=== PATIENT | male | born 1990 | race Caucasian/White ===

== ENCOUNTER 2023-05-09 18:27 | Observation (INO) | payer BC, OTHER ==
[~2023-05-09] VITALS: Ht 170.2 cm; Wt 100.9 kg
[2023-05-09] MEDS ORDERED: EXCETAB22 PO (18:50)
[2023-05-09] MEDS ORDERED: GUAN1TAB49 (18:50)
[2023-05-09 21:48] LABS: BASO % 0.2 % (0.0-1.0); EOS % 0.2 % (0.0-3.0); HEMATOCRIT 47.2 % (42.0-52.0); HEMOGLOBIN 16.3 g/dl (13.5-17.5); LYMPH # 2.6 10^3/uL (1.5-5.0); LYMPH % 15.1 % (24.0-44.0); MEAN CORPUSCULAR HEMOGLOBIN 28.8 pg (27.0-33.0); MEAN CORPUSCULAR HGB CONC 34.5 g/dl (32.0-36.5); MEAN CORPUSCULAR VOLUME 83.5 fl (80.0-96.0); MONO # 1.8 10^3/uL (0.0-0.8); MONO % 10.1 % (2.0-8.0); NEUTROPHILS # 12.9 10^3/uL (1.5-8.5); PLATELET COUNT, AUTOMATED 238 10^3/uL (150-450); RED BLOOD COUNT 5.65 10^6/uL (4.30-6.10); WHITE BLOOD COUNT 17.5 10^3/uL (4.0-10.0)
[2023-05-09 22:20] LABS: LIPASE 33 U/L (12-53)
[2023-05-09 22:22] LABS: ALBUMIN 3.5 G/DL (3.2-5.2); ALKALINE PHOSPHATASE 76 U/L (46-116); ALT/SGPT 35 U/L (7.0-40); AST/SGOT 20 U/L (<34); BILIRUBIN,DIRECT 0.3 MG/DL (<0.4); BILIRUBIN,TOTAL 0.8 MG/DL (0.3-1.2); BLOOD UREA NITROGEN 11 MG/DL (9-23); CALCIUM LEVEL 8.1 MG/DL (8.5-10.1); CARBON DIOXIDE LEVEL 29 MMOL/L (20-31); CHLORIDE LEVEL 105 MMOL/L (98-107); CREATININE FOR GFR 0.85 MG/DL (0.70-1.30); GLOMERULAR FILTRATION RATE > 60.0 (>60); GLUCOSE, FASTING 93 MG/DL (60-100); POTASSIUM SERUM 4.4 MMOL/L (3.5-5.1); SODIUM LEVEL 139 MMOL/L (136-145); TOTAL PROTEIN 7.2 G/DL (5.7-8.2)
[2023-05-09 23:49] LABS: ERYTHROCYTE SEDIMENTATION RATE 47 mm/hr (0-15)
[2023-05-10] MEDS: NS 1,000 ML IV ONE ×2 (00:05→10:42)
[2023-05-10] MEDS ORDERED: ISOVUE-370 76% 100ML VIAL As Ordered ONE (00:22)
[2023-05-10] MEDS: NS 1,000 ML IV SCH (01:45)
[2023-05-10] MEDS: PIPERACILLIN/TAZOBACTAM SOD 4.5 GM in D5W MINI-BAG PLUS 50 ML IV ONE (02:04)
[2023-05-10] MEDS: MORPHINE 2 MG/ML 1ML VIAL IV ONE (04:44)
[2023-05-10] MEDS ORDERED: EXCETAB32 PO (06:14)
[2023-05-10] MEDS ORDERED: GUAN1TAB16 PO (06:14)
[2023-05-10] MEDS ORDERED: HOME MED LIST COMPLETE! XX SCH (06:15)
[2023-05-10] MEDS ORDERED: VITA200032 PO (06:15)
[2023-05-10] MEDS ORDERED: PERCOCET 5MG/325MG TAB PO PRN (07:20)
[2023-05-10] MEDS ORDERED: RIZATRIPTAN BENZOATE 10 MG TAB PO PRN (07:20)
[2023-05-10 09:10] LABS: PERCENT SATURATION 7.3 % (19.7-50.0)
[2023-05-10 09:18] LABS: FERRITIN 96.7 NG/ML (10.5-307.3)
[2023-05-10] MEDS: PIPERACILLIN/TAZOBACTAM SOD 4.5 GM in D5W MINI-BAG PLUS 50 ML IV SCH (10:42)
[2023-05-10] MEDS: ACETAMINOPHEN TAB 650MG DOSE (2X325MG) PO PRN (10:58)
[2023-05-10] MEDS: LR 1,000 ML IV SCH (11:37)
[2023-05-10 18:40] VITALS: BP 131/86; TEMP 98.2; O2SAT 97
[2023-05-10 19:41] VITALS: BP 117/75; TEMP 99.3; O2SAT 96
[2023-05-10] MEDS: PERCOCET 5MG/325MG TAB PO PRN (19:47)
[2023-05-11 05:26] VITALS: BP 118/74; TEMP 97.9; O2SAT 97
[2023-05-11 06:36] LABS: BASO # 0.1 10^3/uL (0.0-0.2); BASO % 0.5 % (0.0-1.0); EOS # 0.1 10^3/uL (0.0-0.5); EOS % 0.9 % (0.0-3.0); HEMATOCRIT 46.4 % (42.0-52.0); HEMOGLOBIN 15.6 g/dl (13.5-17.5); LYMPH % 15.4 % (24.0-44.0); MEAN CORPUSCULAR HEMOGLOBIN 28.4 pg (27.0-33.0); MEAN CORPUSCULAR HGB CONC 33.6 g/dl (32.0-36.5); MEAN CORPUSCULAR VOLUME 84.5 fl (80.0-96.0); MONO # 1.1 10^3/uL (0.0-0.8); MONO % 8.5 % (2.0-8.0); NEUTROPHILS # 9.8 10^3/uL (1.5-8.5); NEUTROPHILS % 74.2 % (36.0-66.0); PLATELET COUNT, AUTOMATED 244 10^3/uL (150-450); RED BLOOD COUNT 5.49 10^6/uL (4.30-6.10); WHITE BLOOD COUNT 13.2 10^3/uL (4.0-10.0)
[2023-05-11 07:05] LABS: BLOOD UREA NITROGEN 9 MG/DL (9-23); CALCIUM LEVEL 8.5 MG/DL (8.5-10.1); CARBON DIOXIDE LEVEL 31 MMOL/L (20-31); CHLORIDE LEVEL 103 MMOL/L (98-107); CREATININE FOR GFR 0.96 MG/DL (0.70-1.30); GLOMERULAR FILTRATION RATE > 60.0 (>60); GLUCOSE, FASTING 86 MG/DL (60-100); MAGNESIUM LEVEL 2.1 MG/DL (1.8-2.4); POTASSIUM SERUM 4.1 MMOL/L (3.5-5.1); SODIUM LEVEL 139 MMOL/L (136-145)
[2023-05-11] MEDS ORDERED: RIZA10TA64 PO (13:05)
[2023-05-11] MEDS ORDERED: BACI1CAP PO (13:05)
[2023-05-11] MEDS ORDERED: METR-265 PO (13:05)
[2023-05-11] MEDS ORDERED: LEVO1TAB40 PO (13:05)
[2023-05-11 14:00] VITALS: BP 134/73; TEMP 98.4; O2SAT 96
[2023-05-11 21:41] VITALS: BP 124/70; TEMP 98.1; O2SAT 96
[2023-05-12 06:00] VITALS: BP 116/70; TEMP 97.2; O2SAT 97
[2023-05-12 07:17] LABS: BASO # 0.1 10^3/uL (0.0-0.2); BASO % 0.5 % (0.0-1.0); EOS # 0.2 10^3/uL (0.0-0.5); EOS % 1.6 % (0.0-3.0); HEMATOCRIT 42.7 % (42.0-52.0); LYMPH % 15.6 % (24.0-44.0); MEAN CORPUSCULAR HEMOGLOBIN 29.4 pg (27.0-33.0); MEAN CORPUSCULAR HGB CONC 35.1 g/dl (32.0-36.5); MEAN CORPUSCULAR VOLUME 83.6 fl (80.0-96.0); MONO # 1.1 10^3/uL (0.0-0.8); MONO % 8.3 % (2.0-8.0); NEUTROPHILS # 9.5 10^3/uL (1.5-8.5); NEUTROPHILS % 73.5 % (36.0-66.0); PLATELET COUNT, AUTOMATED 248 10^3/uL (150-450); RED BLOOD COUNT 5.11 10^6/uL (4.30-6.10)
[2023-05-12 07:54] LABS: BLOOD UREA NITROGEN 14 MG/DL (9-23); CALCIUM LEVEL 8.8 MG/DL (8.5-10.1); CARBON DIOXIDE LEVEL 31 MMOL/L (20-31); CHLORIDE LEVEL 104 MMOL/L (98-107); CREATININE FOR GFR 0.98 MG/DL (0.70-1.30); GLOMERULAR FILTRATION RATE > 60.0 (>60); GLUCOSE, FASTING 101 MG/DL (60-100); MAGNESIUM LEVEL 2.1 MG/DL (1.8-2.4); POTASSIUM SERUM 4.4 MMOL/L (3.5-5.1); SODIUM LEVEL 139 MMOL/L (136-145)
[2023-05-12 17:07] LABS: Chitobioside Carbohydrat (ACCA 94 units (0-90); Laminaribioside Carbohyd (ALCA 26 units (0-60); Mannobioside Carbohydrat (AMCA 19 units (0-100); Saccharomyces cerevisiae IgG A 55 units (0-50)
== END 2023-05-12 10:36 | disposition home or self-care (01) ==
LOC: M ED 18:27 → INTOOBSV 05-10 07:14 → M ED INP 05-10 07:14 → ENRESERV 05-10 16:26 → ENRESERVTM 05-10 18:10 → M MSPAV 05-10 18:39
PROVIDERS: ADMIT General Practice; ATTEND General Practice
DX: K57.20 Diverticulitis of large intestine with perforation and abscess without bleeding (principal); A08.39 Other viral enteritis; G43.909 Migraine, unspecified, not intractable, without status migrainosus; E66.9 Obesity, unspecified; Z68.34 Body mass index [BMI] 34.0-34.9, adult; R93.3 Abnormal findings on diagnostic imaging of other parts of digestive tract; R00.0 Tachycardia, unspecified; R10.32 Left lower quadrant pain; D72.829 Elevated white blood cell count, unspecified; Z82.49 Family history of ischemic heart disease and other diseases of the circulatory system; Z83.3 Family history of diabetes mellitus; Z80.0 Family history of malignant neoplasm of digestive organs
CPT/HCPCS: 36415; 74177; 80048; 80076; 81001; 82728; 83516; 83550; 83690; 83735; 85025; 85652; 86140; 87507; 87635; 96361; 96365; 96366; 96375; 96376; 99285; J2543; Q9967

== ENCOUNTER → 2023-05-25 | Outpatient (CLI) | payer OTHER ==
[~2023-05-25] MED LIST: BACI1CAP PO; EXCETAB22 PO; EXCETAB32 PO; GUAN1TAB16 PO; GUAN1TAB49; LEVO1TAB40 PO; METR-265 PO; RIZA10TA64 PO; VITA200032 PO
[2023-05-25 17:37] LABS: BASO # 0.1 10^3/uL (0.0-0.2); BASO % 0.3 % (0.0-1.0); EOS # 0.1 10^3/uL (0.0-0.5); EOS % 0.9 % (0.0-3.0); HEMATOCRIT 46.3 % (42.0-52.0); HEMOGLOBIN 15.5 g/dl (13.5-17.5); LYMPH # 3.3 10^3/uL (1.5-5.0); LYMPH % 21.8 % (24.0-44.0); MEAN CORPUSCULAR HEMOGLOBIN 28.3 pg (27.0-33.0); MEAN CORPUSCULAR HGB CONC 33.5 g/dl (32.0-36.5); MEAN CORPUSCULAR VOLUME 84.5 fl (80.0-96.0); MONO # 1.3 10^3/uL (0.0-0.8); MONO % 8.3 % (2.0-8.0); NEUTROPHILS # 10.2 10^3/uL (1.5-8.5); NEUTROPHILS % 68.2 % (36.0-66.0); PLATELET COUNT, AUTOMATED 320 10^3/uL (150-450); RED BLOOD COUNT 5.48 10^6/uL (4.30-6.10)
[2023-05-25 19:24] LABS: APPEARANCE, URINE CLEAR (CLEAR); BACTERIA, URINE AUTO NEGATIVE (NEGATIVE); BILIRUBIN, URINE AUTO NEGATIVE (NEGATIVE); BLOOD, URINE BLOOD NEGATIVE (NEGATIVE); COLOR, URINE YELLOW (YELLOW); GLUCOSE, URINE (UA) AUTO NEGATIVE (NEGATIVE); KETONE, URINE AUTO NEGATIVE (NEGATIVE); LEUKOCYTE ESTERASE, URINE AUTO NEGATIVE (NEGATIVE); NITRITE, URINE AUTO NEGATIVE (NEGATIVE); PROTEIN, URINE AUTO NEGATIVE (NEGATIVE); RBC, URINE AUTO 0 /HPF (0-3); SPECIFIC GRAVITY URINE AUTO 1.017 (1.002-1.035); SQUAMOUS EPITHELIAL CELL UR AU 0 /HPF (0-6); UROBILINOGEN, URINE AUTO 0.2 mg/dL (0.0-2.0); WBC, URINE AUTO 0 /HPF (0-3)
== END ==
LOC: M LAB 16:49
PROVIDERS: ATTEND Pediatrics
DX: K57.20 Diverticulitis of large intestine with perforation and abscess without bleeding (principal); R93.41 Abnormal radiologic findings on diagnostic imaging of renal pelvis, ureter, or bladder

== ENCOUNTER 2023-06-28 06:19 | Day surgery (SDC) | payer OTHER ==
[~2023-06-28] VITALS: Ht 172.7 cm; Wt 101.0 kg
[~2023-06-28 06:19] MED LIST changes: +NS 1,000 ML IV ONE
[2023-06-28] MEDS ORDERED: LIDOCAINE 2% 100MG/5ML SDV (FOR ANES.) As Ordered ONE (07:09)
[2023-06-28] MEDS ORDERED: propofoL 200 MG/20 ML VIAL As Ordered ONE (07:09)
[2023-06-28 08:35] VITALS: TEMP 96.8
[2023-06-28 08:50] VITALS: BP 143/83; O2SAT 100
== END 2023-06-28 09:07 | disposition home or self-care (01) ==
LOC: M OPP 06:19
PROVIDERS: ATTEND Surgery
DX: K57.32 Diverticulitis of large intestine without perforation or abscess without bleeding (principal); Z09 Encounter for follow-up examination after completed treatment for conditions other than malignant neoplasm; K57.30 Diverticulosis of large intestine without perforation or abscess without bleeding; K63.5 Polyp of colon; Z79.899 Other long term (current) drug therapy

== ENCOUNTER 2023-09-04 09:14 | Emergency (ER) | payer OTHER ==
[~2023-09-04] VITALS: Ht 170.2 cm; Wt 101.8 kg
[~2023-09-04 09:14] MED LIST changes: -NS 1,000 ML IV ONE
[2023-09-04 09:58] LABS: BASO # 0.1 10^3/uL (0.0-0.2); BASO % 0.6 % (0.0-1.0); EOS # 0.1 10^3/uL (0.0-0.5); EOS % 1.2 % (0.0-3.0); HEMATOCRIT 49.1 % (42.0-52.0); HEMOGLOBIN 16.7 g/dl (13.5-17.5); LYMPH # 2.7 10^3/uL (1.5-5.0); LYMPH % 30.2 % (24.0-44.0); MEAN CORPUSCULAR HEMOGLOBIN 28.5 pg (27.0-33.0); MEAN CORPUSCULAR VOLUME 83.8 fl (80.0-96.0); MONO # 0.7 10^3/uL (0.0-0.8); MONO % 8.2 % (2.0-8.0); NEUTROPHILS # 5.3 10^3/uL (1.5-8.5); NEUTROPHILS % 59.3 % (36.0-66.0); PLATELET COUNT, AUTOMATED 247 10^3/uL (150-450); RED BLOOD COUNT 5.86 10^6/uL (4.30-6.10); WHITE BLOOD COUNT 8.9 10^3/uL (4.0-10.0)
[2023-09-04 10:27] LABS: LIPASE 41 U/L (12-53)
[2023-09-04 10:29] LABS: ALKALINE PHOSPHATASE 82 U/L (46-116); ALT/SGPT 41 U/L (7.0-40); AST/SGOT 23 U/L (<34); BILIRUBIN,DIRECT 0.4 MG/DL (<0.4); BILIRUBIN,TOTAL 1.4 MG/DL (0.3-1.2); BLOOD UREA NITROGEN 9 MG/DL (9-23); CALCIUM LEVEL 9.6 MG/DL (8.5-10.1); CARBON DIOXIDE LEVEL 30 MMOL/L (20-31); CHLORIDE LEVEL 104 MMOL/L (98-107); GLOMERULAR FILTRATION RATE > 60.0 (>60); GLUCOSE, FASTING 93 MG/DL (60-100); POTASSIUM SERUM 4.1 MMOL/L (3.5-5.1); SODIUM LEVEL 140 MMOL/L (136-145); TOTAL PROTEIN 7.7 G/DL (5.7-8.2)
[2023-09-04] MEDS: NS 1,000 ML IV ONE (10:48)
[2023-09-04] MEDS: METOCLOPRAMIDE INJ 10MG/2ML VIAL IV ONE (10:48)
[2023-09-04] MEDS: KETOROLAC 30 MG/ML 1ML VIAL IV ONE (10:48)
[2023-09-04] MEDS ORDERED: ISOVUE-370 76% 100ML VIAL As Ordered ONE (11:12)
[2023-09-04] MEDS: AUGMENTIN 875 MG TAB PO ONE (13:45)
[2023-09-04] MEDS ORDERED: AMOX875T2 PO (14:07)
[2023-09-04 14:24] VITALS: BP 116/76; TEMP 97.3; O2SAT 98
== END 2023-09-04 14:26 | disposition home or self-care (01) ==
LOC: M ED 09:14
DX: K57.32 Diverticulitis of large intestine without perforation or abscess without bleeding (principal); F90.9 Attention-deficit hyperactivity disorder, unspecified type; Z79.899 Other long term (current) drug therapy
CPT/HCPCS: 74177; 80048; 80076; 83690; 85025; 96361; 96374; 96375; 99284; J1885; J2765; Q9967

== ENCOUNTER → 2024-01-30 | Outpatient (CLI) | payer OTHER ==
[~2024-01-30] MED LIST changes: +AMOX875T2 PO
[2024-01-30 16:44] LABS: BASO # 0.1 10^3/uL (0.0-0.2); BASO % 0.5 % (0.0-1.0); EOS # 0.1 10^3/uL (0.0-0.5); EOS % 1.1 % (0.0-3.0); HEMATOCRIT 46.3 % (42.0-52.0); HEMOGLOBIN 16.2 g/dl (13.5-17.5); LYMPH # 2.6 10^3/uL (1.5-5.0); LYMPH % 25.4 % (24.0-44.0); MEAN CORPUSCULAR HEMOGLOBIN 28.8 pg (27.0-33.0); MEAN CORPUSCULAR VOLUME 82.4 fl (80.0-96.0); MONO # 0.9 10^3/uL (0.0-0.8); NEUTROPHILS # 6.6 10^3/uL (1.5-8.5); NEUTROPHILS % 63.6 % (36.0-66.0); PLATELET COUNT, AUTOMATED 260 10^3/uL (150-450); RED BLOOD COUNT 5.62 10^6/uL (4.30-6.10); WHITE BLOOD COUNT 10.3 10^3/uL (4.0-10.0)
[2024-01-30 17:01] LABS: INR 0.94; PARTIAL THROMBOPLASTIN TIME 28.1 SECONDS (24.8-34.2); PROTHROMBIN TIME 12.8 SECONDS (12.5-14.5)
[2024-01-30 17:07] LABS: ALBUMIN 4.1 G/DL (3.2-5.2); ALKALINE PHOSPHATASE 76 U/L (40-129); ALT/SGPT 49 U/L (7.0-40); AST/SGOT 29 U/L (<34); BILIRUBIN,TOTAL 0.8 MG/DL (0.3-1.2); BLOOD UREA NITROGEN 15 MG/DL (9-23); CALCIUM LEVEL 9.9 MG/DL (8.5-10.1); CARBON DIOXIDE LEVEL 28 MMOL/L (20-31); CHLORIDE LEVEL 103 MMOL/L (98-107); CREATININE FOR GFR 0.83 MG/DL (0.70-1.30); GLOMERULAR FILTRATION RATE > 60.0 (>60); GLUCOSE, FASTING 85 MG/DL (60-100); POTASSIUM SERUM 4.1 MMOL/L (3.5-5.1); SODIUM LEVEL 138 MMOL/L (136-145)
== END ==
LOC: M RAD 16:22
PROVIDERS: ATTEND Physician Assistant
DX: K62.5 Hemorrhage of anus and rectum (principal); R10.30 Lower abdominal pain, unspecified

== ENCOUNTER → 2024-01-31 | Outpatient (CLI) | payer OTHER ==
[~2024-01-31] MED LIST changes: +ISOVUE-370 76% 100ML VIAL As Ordered ONE
== END ==
LOC: M RAD 08:35
PROVIDERS: ATTEND Physician Assistant
DX: R10.30 Lower abdominal pain, unspecified (principal); R93.5 Abnormal findings on diagnostic imaging of other abdominal regions, including retroperitoneum
CPT/HCPCS: 74177; Q9967

== ENCOUNTER 2025-01-29 07:38 | Emergency (ER) | payer OTHER ==
[~2025-01-29] VITALS: Ht 170.2 cm; Wt 105.9 kg
[~2025-01-29 07:38] MED LIST changes: -ISOVUE-370 76% 100ML VIAL As Ordered ONE
[2025-01-29] MEDS ORDERED: CEPH500C PO (07:52)
[2025-01-29] MEDS ORDERED: RIZA10TA58 PO (07:52)
[2025-01-29] MEDS ORDERED: MUPI2OI TOP (07:52)
[2025-01-29 08:57] LABS: BASO # 0.1 10^3/uL (0.0-0.2); BASO % 0.8 % (0.0-1.0); EOS # 0.1 10^3/uL (0.0-0.5); EOS % 1.2 % (0.0-3.0); LYMPH # 4.5 10^3/uL (1.5-5.0); LYMPH % 37.3 % (24.0-44.0); MONO # 1.2 10^3/uL (0.0-0.8); MONO % 10.0 % (2.0-8.0); NEUTROPHILS # 5.9 10^3/uL (1.5-8.5); NEUTROPHILS % 49.4 % (36.0-66.0)
[2025-01-29 09:24] LABS: CALCIUM LEVEL 8.4 MG/DL (8.5-10.1); CARBON DIOXIDE LEVEL 30 MMOL/L (20-31); CHLORIDE LEVEL 105 MMOL/L (98-107); CREATININE FOR GFR 0.88 MG/DL (0.70-1.30); GLOMERULAR FILTRATION RATE > 90.0 (>60); POTASSIUM SERUM 3.9 MMOL/L (3.5-5.1); SODIUM LEVEL 143 MMOL/L (136-145)
[2025-01-29] MEDS ORDERED: ISOVUE-370 76% 100 ML VIAL As Ordered ONE (09:42)
[2025-01-29 09:55] LABS: MONO SCRN NEGATIVE (NEGATIVE)
[2025-01-29] MEDS ORDERED: HOME MED LIST COMPLETE! XX SCH (12:50)
[2025-01-29 13:28] VITALS: BP 131/77; TEMP 98.2
[2025-01-29 13:47] VITALS: O2SAT 97
== END 2025-01-29 13:53 | disposition home or self-care (01) ==
LOC: M ED 07:38
DX: R59.0 Localized enlarged lymph nodes (principal); K57.92 Diverticulitis of intestine, part unspecified, without perforation or abscess without bleeding; Z87.01 Personal history of pneumonia (recurrent)
CPT/HCPCS: 71275; 80048; 85025; 86308; 87081; 87486; 87581; 87633; 87798; 87880; 93971; 99285; Q9967

== ENCOUNTER 2025-02-14 08:24 | Emergency (ER) | payer OTHER ==
[~2025-02-14] VITALS: Ht 170.2 cm; Wt 104.9 kg
[~2025-02-14 08:24] MED LIST changes: +CEPH500C PO; +MUPI2OI TOP; +RIZA10TA58 PO
[2025-02-14 12:00] VITALS: TEMP 99.5
[2025-02-14] MEDS: LIDOCAINE W/EPINEPHrine 1% 20 ML VIAL SC ONE (12:30)
[2025-02-14 13:25] VITALS: BP 118/78; O2SAT 98
== END 2025-02-14 13:31 | disposition home or self-care (01) ==
LOC: M ED 08:24
DX: L02.411 Cutaneous abscess of right axilla (principal)